=== PATIENT | male | born 1950 | race Caucasian/White ===

== ENCOUNTER 2017-08-18 13:47 | Inpatient (IN) | payer BC, MEDICARE ==
[~2017-08-18] VITALS: Ht 170.2 cm; Wt 79.8 kg
--- NOTE | 2017-08-18 13:54 | NUR ---
BIBRA DT SYNCOPE. PATIENT IS COMPLAINING OF DIZZINESS AND BACK PAIN DT FALL. PATIENT IS AWAKE AND ALERT. NOT IN DISTRESS. SKIN IS WARM TO TOUCH AND NON DIAPHORETIC. PATIENT IS AFEBRILE. VSS
[2017-08-18] MEDS ORDERED: IV NS 0.9% 1,000 ML BAG IV ONE (14:00)
[2017-08-18] MEDS ORDERED: ONDANSETRON HCL/PF 4 MG/2 ML VIAL IVP ONE (14:00)
[2017-08-18] MEDS ORDERED: ONDANSETRON HCL/PF 4 MG/2 ML VIAL ONE (14:01)
[2017-08-18] MEDS ORDERED: ASPI-605 PO (14:05)
[2017-08-18] MEDS ORDERED: UNK ABX (14:05)
[2017-08-18] MEDS ORDERED: LOVA20TA2 PO (14:05)
[2017-08-18] MEDS ORDERED: OMEG1000 PO (14:05)
[2017-08-18 14:29] LABS: CALCIUM, SERUM 8.8 mg/dL (8.5-10.1); CARBON DIOXIDE 28 mmol/L (21-32); CHLORIDE 102 mmol/L (98-107); GLUCOSE 104 mg/dL (74-106); POTASSIUM 3.7 mmol/L (3.5-5.1); SODIUM SERUM 138 mmol/L (136-145); UREA NITROGEN, BLOOD 13 mg/dL (7-18)
[2017-08-18 14:30] LABS: BASOPHILS % (AUTO) 0.5 % (0.0-2.0); EOSINOPHILS % (AUTO) 1.2 % (0.0-6.0); HEMATOCRIT 46 % (39-51); HEMOGLOBIN 15.6 g/dL (13.5-17.5); LYMPHOCYTES # (AUTO) 1.7 /CMM (0.8-4.8); LYMPHOCYTES % (AUTO) 19.5 % (20.0-44.0); MEAN CORPUSCULAR HGB CONC 34 g/dl (31.0-36.0); MEAN CORPUSCULAR VOLUME 93 fL (80-96); MONOCYTES # (AUTO) 0.5 /CMM (0.1-1.30); MONOCYTES % (AUTO) 5.3 % (2.0-12.0); NEUTROPHILS # (AUTO) 6.4 /CMM (1.8-8.9); NEUTROPHILS % (AUTO) 73.5 % (43.0-81.0); PLATELET COUNT (AUTO) 251 /CMM (150-450); RDW COEFFICIENT OF VARIATION 13.5 (11.5-15.0); RED BLOOD CELL COUNT(AUTO) 4.96 MIL/uL (4.5-6.0); WHITE BLOOD COUNT (AUTO) 8.7 K/uL (4.3-11.0)
[2017-08-18 14:36] LABS: ALANINE AMINOTRANSFERASE 42 U/L (12-78); ALBUMIN 3.7 g/dL (3.4-5.0); ALKALINE PHOSPHATASE 46 U/L (46-116); ASPARTATE AMINOTRANSFERASE 21 U/L (15-37); BILIRUBIN,DIRECT 0.1 mg/dL (0.0-0.2); BILIRUBIN,TOTAL 0.7 mg/dL (0.2-1.0); TOTAL PROTEIN, SERUM 7.2 g/dL (6.4-8.2)
[2017-08-18 14:39] LABS: INR 0.96 (0.87-1.13)
[2017-08-18 14:46] LABS: TROPONIN I < 0.017 ng/mL (0.00-0.056)
--- NOTE | 2017-08-18 15:05 | NUR ---
Patient is resting comfortably in bed. VSS
--- NOTE | 2017-08-18 15:12 | NUR ---
ORTHOSTATIC VS CANCELED BY LUZ COX
[2017-08-18] MEDS ORDERED: ACETAMINOPHEN ES 500 MG TABLET PO ONE (15:30)
[2017-08-18] MEDS ORDERED: CEPH-570 PO (15:40)
[2017-08-18] MEDS ORDERED: ACETAMINOPHEN ES 500 MG TABLET ONE (15:58)
[2017-08-18] MEDS ORDERED: IV NS 0.9% 1,000 ML IV PRN ×2 (16:10→16:45)
--- NOTE | 2017-08-18 16:23 | NUR ---
REPORT GIVEN TO NURSE 118-2 MAVERICK
[2017-08-18] MEDS ORDERED: ONDANSETRON HCL/PF 4 MG/2 ML VIAL IVP PRN ×2 (16:30→16:45)
[2017-08-18] MEDS ORDERED: HYDROCODONE/APAP 5/325MG 1 EACH TABLET PO PRN ×2 (16:30→16:45)
[2017-08-18] MEDS ORDERED: MAGNESIUM HYDROXIDE 30 ML UDC PO PRN ×2 (16:30→16:45)
[2017-08-18] MEDS ORDERED: ACETAMINOPHEN 325 MG TABLET PO PRN ×2 (16:30→16:45)
[2017-08-18] MEDS ORDERED: MAG HYDROX/AL HYDROX/SIMETH 30 ML UDC PO PRN ×2 (16:30→16:45)
[2017-08-18] MEDS ORDERED: TEMAZEPAM 15 MG CAPSULE PO PRN ×2 (16:30→22:00)
--- NOTE | 2017-08-18 16:50 | NUR ---
MAVERICK RN NOTES RECIEVED PT FROM ED AOX3 AT BEDSIDE. DX WITH SYNCOPE. UNDER CARE RN ACADEMIC SUPPORT SPECIALIST TANIYA. PLACED ON TELEMONITOR SB. VS TAKEN R AC SALINE LOCK INTACT NO INFECTION. HOSP ORIENTATION COMPLETED. CAROTID STUDY AT BEDSIDE IN PROCESS. PLAN OF CARE DISCUSSED WITH PT. NEGATIVE CHEST P, NEG SOB. BED LOCKED AND LOWEST POSITION. CALL LIGHT WITHIN REACH. WILL CONTINUE TO MONITOR.
[2017-08-18] MEDS ORDERED: CEPHALEXIN MONOHYDRATE 500 MG CAPSULE PO SCH (17:00)
[2017-08-18 17:26] VITALS: BP 118/72
[2017-08-18] MEDS ORDERED: ENOXAPARIN SODIUM 40 MG/0.4 ML DISP.SYRIN SQ SCH (17:30)
[2017-08-18] MEDS: CEPHALEXIN MONOHYDRATE 500 MG CAPSULE PO SCH (17:38)
[2017-08-18] MEDS ORDERED: IOHEXOL-350 100 ML VIAL IV ONE (17:46)
[2017-08-18] MEDS ORDERED: CT SWABBABLE VALVE TRANS SET 1 EA INFUS.SET MC ONE (17:46)
--- NOTE | 2017-08-18 17:55 | NUR ---
RN NOTES US AND ECHOCARDIO COMPLETED. CONSENT FOR CT ANGIO OBTAINED AND IN PROCESS. BEDSIDE. IV 18G R AC WITH POSITIVE BLOOD RETURN AND NEGATIVE OCCLUSION WILL CONTINUE TO MONITOR
--- NOTE | 2017-08-18 18:46 | NUR ---
MAVERICK RN NOTE ALL NEEDS ATTENDED , AT BEDSIDE, NOT IN ACUTE DISTRESS
[2017-08-18 20:00] VITALS: BP_SYST 122; BP_SYST 125; BP_DIAS 66
--- NOTE | 2017-08-18 20:00 | NUR ---
RN MAVERICK - NOTES - RECEIVED PT AOX3 WITH AT BEDSIDE. DX SYNCOPE. PT PLACED ON TELEMONITOR SR. VSS. R AC IV SALINE LOCK INTACT NO INFECTION. CAROTID STUDY AT BEDSIDE IN PROCESS. PLAN OF CARE DISCUSSED WITH PT. NEGATIVE CHEST P, NEG SOB. BED LOCKED AND LOWEST POSITION. CALL LIGHT WITHIN REACH. WILL CONTINUE TO MONITOR.
[2017-08-18] MEDS ORDERED: ATORVASTATIN 40 MG TABLET PO SCH ×2 (22:00)
[2017-08-19] VITALS (7 sets, daily range): BP systolic 118–142; BP diastolic 62–84
--- NOTE | 2017-08-19 07:51 | NUR ---
INITIAL MAVERICK RN NOTE RCVD PT AWAKE AND ALERT, SHOWING NO S/O DISTRESS AT THIS TIME, AT BEDSIDE. SR ON TELE. ON RA TOLERATING WELL. PT AMBULATORY WITH STEADY GAIT. RIGHT AC C/D/I/PATENT. NO S/O INFILTRATION/PHLEBITIS OBSERVED. IVF INFUSING. WILL CONTINUE TO MONITOR PT FOR SAFETY AND COMFORT. CALL LIGHT WITHIN REACH. BED IN LOW AND LOCKED POSITION.
[2017-08-19 08:23] LABS: BASOPHILS % (AUTO) 0.4 % (0.0-2.0); EOSINOPHILS % (AUTO) 1.8 % (0.0-6.0); HEMATOCRIT 45 % (39-51); HEMOGLOBIN 15.6 g/dL (13.5-17.5); LYMPHOCYTES # (AUTO) 1.6 /CMM (0.8-4.8); LYMPHOCYTES % (AUTO) 21.5 % (20.0-44.0); MEAN CORPUSCULAR HGB CONC 35 g/dl (31.0-36.0); MEAN CORPUSCULAR VOLUME 93 fL (80-96); MONOCYTES # (AUTO) 0.3 /CMM (0.1-1.30); MONOCYTES % (AUTO) 3.9 % (2.0-12.0); NEUTROPHILS # (AUTO) 5.5 /CMM (1.8-8.9); NEUTROPHILS % (AUTO) 72.4 % (43.0-81.0); PLATELET COUNT (AUTO) 233 /CMM (150-450); RED BLOOD CELL COUNT(AUTO) 4.83 MIL/uL (4.5-6.0); WHITE BLOOD COUNT (AUTO) 7.6 K/uL (4.3-11.0)
[2017-08-19 08:31] LABS: CALCIUM, SERUM 8.1 mg/dL (8.5-10.1); CREATININE 0.8 mg/dL (0.6-1.3); POTASSIUM 4.1 mmol/L (3.5-5.1)
[2017-08-19 08:34] LABS: PHOSPHORUS 3.7 mg/dL (2.5-4.9)
[2017-08-19] MEDS: CEPHALEXIN MONOHYDRATE 500 MG CAPSULE PO SCH ×2 (08:34→12:06)
[2017-08-19 08:35] LABS: MAGNESIUM 2.1 mg/dL (1.8-2.4)
[2017-08-19] MEDS ORDERED: PANTOPRAZOLE 40 MG VIAL IV SCH ×2 (09:00)
[2017-08-19] MEDS ORDERED: ASPIRIN EC 81 MG TABLET.DR PO SCH ×2 (09:00)
[2017-08-19 09:08] LABS: CHOLESTEROL 123 mg/dL (<200); HDL CHOLESTEROL 52 mg/dL (40-60); LDL 62 mg/dL (0-99); TRIGLYCERIDES 66 mg/dL (30-150)
--- NOTE | 2017-08-19 11:36 | NUR ---
AMMON received a call from [facility] in case management requesting for SW to provide verification of admission letter for the pt. since he missed his flight. AMMON completed verification of admission letter with BROOKE Pace's signature and gave letter to the patient.
[2017-08-19] MEDS ORDERED: PNEUMOCOCCAL 23-VAL P-SAC VAC 0.5 ML VIAL SQ ONE (12:00)
--- NOTE | 2017-08-19 12:21 | NUR ---
FINAL MAVERICK RN NOTE PT DISCHARGED HOME IN STABLE CONDITION. NO S/O PAIN, DISTRESS, OR DIZZINESS OBSERVED/VERBALIZED BY PT. PT ACCOMPANIED BY BEING TRANSPORTED HOME BY PT'S DAUGHTER WHO WAITED OUTSIDE FOR PT. PT REFUSED WHEELCHAIR AND WAS ACCOMPANIED TO [facility] BY RN. PNEUMONIA VACCINE GIVEN ORDERED. IV SITE REMOVED, TIP OF CATHETER INTACT. EDUCATION MATERIALS AND MD's RECOMMENDATIONS GIVEN TO PT AND HIS , IVANA, INFORMATION ACKNOWLEDGED. ALL BELONGINGS ACCOUNTED FOR BY PT'S . Addendum: 08/19/17 at 1225 by HOONRIO SAENZ RN CD WITH IMAGING WAS INCLUDED WITH DISCHARGE PAPERWORK.
== END 2017-08-19 12:21 | disposition home or self-care (01) | DRG 74 ==
LOC: ER 13:51 → TELE1 16:51 → TELE-TD 16:54
PROVIDERS: ADMIT Nurse Practitioner Acute Care; ATTEND Nurse Practitioner Acute Care
DX: G90.8 Other disorders of autonomic nervous system (principal); K56.7 Ileus, unspecified; M48.02 Spinal stenosis, cervical region; E66.9 Obesity, unspecified; E78.5 Hyperlipidemia, unspecified; S00.03XA Contusion of scalp, initial encounter; W19.XXXA Unspecified fall, initial encounter; Y93.9 Activity, unspecified; Y92.009 Unspecified place in unspecified non-institutional (private) residence as the place of occurrence of the external cause; Z79.82 Long term (current) use of aspirin; Z79.899 Other long term (current) drug therapy; I25.10 Atherosclerotic heart disease of native coronary artery without angina pectoris; M19.90 Unspecified osteoarthritis, unspecified site; F17.200 Nicotine dependence, unspecified, uncomplicated; Z68.27 Body mass index [BMI] 27.0-27.9, adult; H61.001 Unspecified perichondritis of right external ear; H60.11 Cellulitis of right external ear; Z77.090 Contact with and (suspected) exposure to asbestos; M54.9 Dorsalgia, unspecified
CPT/HCPCS: 36415; 70450-TC; 71045-TC; 72110-TC; 72125-TC; 80048-TC; 80061-TC; 80076-TC; 83735-TC; 84100-TC; 84484-TC; 85025-TC; 85378-TC; 85730-TC; 87081-TC; 90732; 93307-TC; 93880-TC; A4606; C9113; G0480; J1650; J2405; J7030; Q9967; Z7610